=== PATIENT | female | born 1960 ===

== ENCOUNTER 2018-01-26 12:11 | Emergency (ER) | payer OTHER ==
[~2018-01-26] VITALS: Ht 157.5 cm; Wt 69.9 kg
== END 2018-01-26 17:21 | disposition home or self-care (01) ==
LOC: ER
DX: R50.9 Fever, unspecified (principal); N39.0 Urinary tract infection, site not specified; J11.1 Influenza due to unidentified influenza virus with other respiratory manifestations

== ENCOUNTER 2018-01-30 14:09 | Emergency (ER) | payer OTHER ==
[~2018-01-30] VITALS: Ht 152.4 cm; Wt 68.0 kg
== END 2018-01-30 17:12 | disposition home or self-care (01) ==
LOC: ER 14:09
DX: N39.0 Urinary tract infection, site not specified (principal)